=== PATIENT | female | born 1955 | race African-American/Black ===

== ENCOUNTER 2018-08-10 14:32 | Inpatient (IN) | payer OTHER, MEDICAID ==
[2018-08-10] VITALS: BP 102/52
[~2018-08-10] VITALS: Ht 170.2 cm; Wt 76.2 kg
[2018-08-10 15:45] LABS: BASOPHILS % 0.5 % (0.0-2.0); EOSINOPHILS % 0.7 % (0.0-5.0); HEMATOCRIT. 41.9 % (36.0-48.0); LYMPHOCYTES % 8.3 % (20.0-50.0); MEAN CORPUSCULAR HEMOGLOBIN 31.7 pg (28.0-32.0); MEAN CORPUSCULAR VOLUME 94.7 fL (81.0-99.0); MONOCYTES % 3.6 % (2.0-8.0); NEUTROPHILS % 86.9 % (40.0-76.0); PLATELET 260 x1000/uL (130-400); RED BLOOD CELL COUNT 4.42 mill/uL (4.2-5.4); RED CELL DISTRIBUTION WIDTH 13.4 % (11.6-14.6)
[2018-08-10 15:50] LABS: CHLORIDE 103 mEq/L (98-107)
[2018-08-10] MEDS ORDERED: CEFTRIAXONE 2 G PREMIX 50 ML IV ONE (16:00)
[2018-08-10] MEDS ORDERED: SODIUM CHLORIDE 0.9% 1000ML BAG (SEPSIS BOLUS) IV ONE (16:00)
[2018-08-10] MEDS ORDERED: LEVOFLOXACIN 750MG PREMIX 150 ML IV ONE (16:00)
[2018-08-10 17:12] LABS: CLARITY URINE CLEAR (CLEAR); COLOR URINE YELLOW (YELLOW); KETONES URINE NEGATIVE (NEGATIVE); LEUKOCYTE ESTERASE URINE NEGATIVE (NEGATIVE); NITRITE URINE NEGATIVE (NEGATIVE); OCCULT BLOOD URINE TRACE (NEGATIVE); PROTEIN URINE NEGATIVE (NEGATIVE); SPECIFIC GRAVITY URINE 1.011 (1.005-1.030)
[2018-08-10] MEDS ORDERED: ACETAMINOPHEN 325MG TABLET ONE (17:36)
[2018-08-10] MEDS ORDERED: ACETAMINOPHEN 325MG TABLET PO PRN ×2 (19:30→22:15)
[2018-08-10] MEDS ORDERED: HYDROCODONE/ACETAMINOPHEN 5/325MG TABLET PO NR (20:47)
[2018-08-10 21:20] VITALS: BP 128/75
[2018-08-10 21:30] VITALS: BP 128/75
[2018-08-10] MEDS ORDERED: LEVOFLOXACIN 500MG PREMIX 100 ML IV SCH (22:15)
[2018-08-10] MEDS ORDERED: CLONIDINE 0.1MG TABLET PO PRN (22:15)
[2018-08-10] MEDS ORDERED: HYDROCODONE/ACETAMINOPHEN 10/325MG TABLET PO PRN (22:15)
[2018-08-10] MEDS ORDERED: DIPHENHYDRAMINE 50MG/ML VIAL IV PRN (22:15)
[2018-08-10] MEDS ORDERED: MAGNESIUM/ALUMINUM HYDROXIDE/SIMETHICONE 30ML UDC PO PRN (22:15)
[2018-08-10] MEDS ORDERED: IPRATROPIUM/ALBUTEROL 0.5-3(2.5)MG/3ML NEB INH PRN (22:15)
[2018-08-10] MEDS ORDERED: ONDANSETRON HCL 4MG/2ML INJ IV PRN (22:15)
[2018-08-10] MEDS ORDERED: GUAIFENESIN 200MG/10ML SUGAR FREE UDC PO PRN (22:15)
[2018-08-10] MEDS ORDERED: POTASSIUM CHLORIDE 20MEQ TABLET SR PO NR (23:00)
[2018-08-10] MEDS ORDERED: HYDR-2510 PO (23:18)
[2018-08-10] MEDS ORDERED: AMLO5TAB4 PO (23:18)
[2018-08-11] MEDS ORDERED: HYDROCODONE/ACETAMINOPHEN 5/325MG TABLET PO PRN (01:00)
[2018-08-11] MEDS: SODIUM CHLORIDE 0.9% 1,000 ML IV SCH ×2 (02:30→11:48)
[2018-08-11] MEDS: IPRATROPIUM/ALBUTEROL 0.5-3(2.5)MG/3ML NEB HHN SCH ×4 (02:49→22:04)
[2018-08-11 04:00] VITALS: BP 115/55
[2018-08-11 08:00] VITALS: BP 121/73
[2018-08-11] MEDS: ENOXAPARIN 40MG/0.4ML SYR SUBCUT SCH (08:51)
[2018-08-11] MEDS: GUAIFENESIN 600MG ER TABLET PO SCH ×2 (08:51→20:01)
[2018-08-11] MEDS ORDERED: POTASSIUM CHLORIDE 20MEQ TABLET SR PO NR ×2 (10:15→19:15)
[2018-08-11 16:00] VITALS: BP 146/79
[2018-08-11] MEDS ORDERED: LEVOFLOXACIN 500MG PREMIX 100 ML IV SCH (16:00)
[2018-08-11] MEDS ORDERED: TEMAZEPAM 15MG CAPSULE PO PRN (19:15)
[2018-08-11 20:00] VITALS: BP 136/66
[2018-08-12] VITALS: BP 139/73
[2018-08-12] MEDS: SODIUM CHLORIDE 0.9% 1,000 ML IV SCH (00:07)
[2018-08-12] MEDS: IPRATROPIUM/ALBUTEROL 0.5-3(2.5)MG/3ML NEB HHN SCH ×2 (03:42→09:42)
[2018-08-12 04:00] VITALS: BP 138/72
[2018-08-12 07:02] LABS: BASOPHILS % 0.3 % (0.0-2.0); EOSINOPHILS % 0.9 % (0.0-5.0); HEMATOCRIT. 36.1 % (36.0-48.0); HEMOGLOBIN. 11.9 g/dL (12.0-16.0); LYMPHOCYTES % 14.5 % (20.0-50.0); MEAN CORPUSCULAR HEMOGLOBIN 31.2 pg (28.0-32.0); MEAN CORPUSCULAR VOLUME 94.6 fL (81.0-99.0); MEAN PLATELET VOLUME 8.8 fl (7.4-10.4); MONOCYTES % 3.3 % (2.0-8.0); PLATELET 243 x1000/uL (130-400); RED BLOOD CELL COUNT 3.81 mill/uL (4.2-5.4); RED CELL DISTRIBUTION WIDTH 13.4 % (11.6-14.6)
[2018-08-12 07:41] LABS: CHLORIDE 115 mEq/L (98-107)
[2018-08-12 08:00] VITALS: BP 156/83
[2018-08-12] MEDS: GUAIFENESIN 600MG ER TABLET PO SCH (08:59)
[2018-08-12] MEDS: ENOXAPARIN 40MG/0.4ML SYR SUBCUT SCH (08:59)
[2018-08-12 12:41] VITALS: BP 125/83
== END 2018-08-12 13:40 | disposition home or self-care (01) | DRG 720 ==
LOC: ER 15:42 → 5WST 16:28 → EDBEDREQTM 16:30 → EDBEDREQ 16:30 → ENRESERV 20:02
PROVIDERS: ADMIT Internal Medicine; ATTEND Internal Medicine
DX: A41.9 Sepsis, unspecified organism (principal); J18.9 Pneumonia, unspecified organism; E87.6 Hypokalemia; I10 Essential (primary) hypertension; E78.00 Pure hypercholesterolemia, unspecified; Z82.49 Family history of ischemic heart disease and other diseases of the circulatory system
CPT/HCPCS: 36415; 71045; 76700; 80048; 83605; 83735; 83880; 84484; 87070; 87077; 87804; 93005; 93970; 94640; 96365; 96368; 99291; J0696; J1650; J1956; J7030; J7620

== ENCOUNTER 2020-08-27 14:43 | Inpatient (IN) | payer BC, MEDICAID ==
[~2020-08-27] VITALS: Ht 167.6 cm; Wt 77.8 kg
[~2020-08-27 14:43] MED LIST: AMLO5TAB4 PO; HYDR50TA PO
[2020-08-27] MEDS ORDERED: ONDANSETRON HCL 4MG/2ML INJ IV STA (15:35)
[2020-08-27] MEDS ORDERED: MORPHINE SULFATE 4 MG/ML CPJ (NOT FOR IM USE) IV STA (15:35)
[2020-08-27] MEDS ORDERED: SODIUM CHLORIDE 0.9% 1,000 ML IV ONE ×2 (15:45→17:30)
[2020-08-27] MEDS ORDERED: HYDRALAZINE 20MG/ML VIAL IV ONE (17:30)
[2020-08-27 18:35] LABS: BASOPHILS % 0.3 % (0.0-2.0); EOSINOPHILS % 0.9 % (0.0-5.0); HEMATOCRIT. 42.9 % (36.0-48.0); HEMOGLOBIN. 14.7 g/dL (12.0-16.0); MEAN CORPUSCULAR VOLUME 93.1 fL (81.0-99.0); MEAN PLATELET VOLUME 8.7 fl (7.4-10.4); MONOCYTES % 3.4 % (2.0-8.0); NEUTROPHILS % 81.4 % (40.0-76.0); PLATELET 274 x1000/uL (130-400); RED BLOOD CELL COUNT 4.61 mill/uL (4.2-5.4); RED CELL DISTRIBUTION WIDTH 13.5 % (11.6-14.6)
[2020-08-27 18:41] LABS: CHLORIDE 108 mEq/L (98-107)
[2020-08-27 18:44] LABS: ETHANOL BLOOD < 10 mg/dL
[2020-08-27 19:45] LABS: PROTHROMBIN TIME 11.1 sec (9.6-11.0)
[2020-08-27] MEDS ORDERED: HYDROCHLOROTHIAZIDE 12.5MG CAPSULE PO ONE (20:15)
[2020-08-27] MEDS ORDERED: AMLODIPINE 5MG TABLET PO ONE (20:15)
[2020-08-27 22:00] VITALS: BP 146/92
[2020-08-27] MEDS ORDERED: ASPI-1497 MT (22:11)
[2020-08-27] MEDS ORDERED: HYDR12.54 MT (22:11)
[2020-08-27] MEDS ORDERED: AMLO5TAB4 MT (22:11)
[2020-08-27 22:15] VITALS: BP 145/74
[2020-08-27] MEDS ORDERED: ACETAMINOPHEN 325MG TABLET PO PRN (23:30)
[2020-08-27] MEDS ORDERED: ONDANSETRON HCL 4MG/2ML INJ IV PRN (23:30)
[2020-08-27] MEDS ORDERED: CLONIDINE 0.1MG TABLET PO PRN (23:30)
[2020-08-28] VITALS (11 sets, daily range): BP systolic 117–152; BP diastolic 57–93
[2020-08-28 05:49] LABS: BASOPHILS % 0.6 % (0.0-2.0); EOSINOPHILS % 1.1 % (0.0-5.0); HEMATOCRIT. 40.2 % (36.0-48.0); HEMOGLOBIN. 13.3 g/dL (12.0-16.0); MEAN CORPUSCULAR HEMOGLOBIN 31.3 pg (28.0-32.0); MEAN CORPUSCULAR VOLUME 94.2 fL (81.0-99.0); MEAN PLATELET VOLUME 8.5 fl (7.4-10.4); NEUTROPHILS % 68.3 % (40.0-76.0); PLATELET 239 x1000/uL (130-400); RED BLOOD CELL COUNT 4.27 mill/uL (4.2-5.4); RED CELL DISTRIBUTION WIDTH 13.9 % (11.6-14.6)
[2020-08-28 05:58] LABS: CHLORIDE 108 mEq/L (98-107)
[2020-08-28 06:13] LABS: CREATINE KINASE 101 IU/L (26-192); LDL CHOLESTEROL 129 mg/dL (5-100)
[2020-08-28 06:16] LABS: HDL CHOLESTEROL 45 mg/dL (40-59)
[2020-08-28 06:19] LABS: CREATINE KINASE MB FRACTION 1.8 ng/mL (0.5-3.6)
[2020-08-28] MEDS ORDERED: NIFEDIPINE XL 60MG TAB PO SCH (09:00)
[2020-08-28] MEDS ORDERED: POTASSIUM CHLORIDE 20MEQ TABLET SR PO NR (10:00)
[2020-08-28] MEDS ORDERED: ASPIRIN 81MG TABLET PO SCH (10:15)
[2020-08-28 12:25] LABS: CLARITY URINE CLEAR (CLEAR); COLOR URINE YELLOW (YELLOW); KETONES URINE NEGATIVE (NEGATIVE); LEUKOCYTE ESTERASE URINE TRACE (NEGATIVE); NITRITE URINE NEGATIVE (NEGATIVE); OCCULT BLOOD URINE NEGATIVE (NEGATIVE); PH URINE 5.5 (4.5-8.0); PROTEIN URINE NEGATIVE (NEGATIVE); SPECIFIC GRAVITY URINE 1.015 (1.005-1.030)
[2020-08-28 13:21] LABS: *AMPHETAMINES SCREEN URINE NEGATIVE (NEGATIVE); *BARBITURATES SCREEN URINE NEGATIVE (NEGATIVE); *BENZODIAZEPINES SCREEN URINE NEGATIVE (NEGATIVE); *COCAINE SCREEN URINE NEGATIVE (NEGATIVE); METHADONE URINE SCREEN NEGATIVE (NEGATIVE); OPIATES URINE SCREEN PRESUMTIVE POSITIVE (NEGATIVE)
[2020-08-28 13:22] LABS: CANNABINOID URINE SCREEN NEGATIVE (NEGATIVE); PHENCYCLIDINE URINE SCREEN NEGATIVE (NEGATIVE)
[2020-08-28] MEDS: ENOXAPARIN 40MG/0.4ML SYR SUBCUT SCH (15:12)
[2020-08-28 15:42] LABS: CREATINE KINASE MB FRACTION 1.6 ng/mL (0.5-3.6)
[2020-08-28] MEDS ORDERED: ATORVASTATIN CALCIUM 10MG TABLET PO SCH (21:00)
[2020-08-28] MEDS ORDERED: ATORVASTATIN CALCIUM 40MG TABLET PO SCH (21:00)
[2020-08-29] VITALS (13 sets, daily range): BP systolic 114–142; BP diastolic 61–83
[2020-08-29 07:15] LABS: EOSINOPHILS % 5.5 % (0.0-5.0); HEMATOCRIT. 40.2 % (36.0-48.0); HEMOGLOBIN. 13.8 g/dL (12.0-16.0); LYMPHOCYTES % 49.8 % (20.0-50.0); MEAN CORPUSCULAR HEMOGLOBIN 32.2 pg (28.0-32.0); MEAN PLATELET VOLUME 8.5 fl (7.4-10.4); NEUTROPHILS % 31.7 % (40.0-76.0); PLATELET 251 x1000/uL (130-400); RED BLOOD CELL COUNT 4.28 mill/uL (4.2-5.4)
[2020-08-29 07:35] LABS: CHLORIDE 109 mEq/L (98-107)
[2020-08-29] MEDS ORDERED: NITROGLYCERIN 50MCG/ML 10ML VIAL (CATH LAB) IV ONE (07:50)
[2020-08-29] MEDS ORDERED: NICARDIPINE 100MCG/ML 10ML VIAL (CATH LAB) IV ONE (07:50)
[2020-08-29] MEDS ORDERED: HEPARIN SODIUM 1,000 UNIT/1ML VIAL IV ONE (07:50)
[2020-08-29] MEDS ORDERED: VERAPAMIL HCL 2.5 MG/1 ML 2ML VIAL IV ONE (08:35)
[2020-08-29] MEDS ORDERED: LIDOCAINE HCL 1% 20ML VIAL (Pyxis) INJ ONE (08:35)
[2020-08-29] MEDS ORDERED: IODIXANOL 320MG/ML 100 ML BOTTLE IV ONE (08:36)
[2020-08-29] MEDS ORDERED: MIDAZOLAM HCL 2 MG/2 ML VIAL ONE (09:00)
[2020-08-29] MEDS ORDERED: FENTANYL CITRATE/PF 50MCG/ML 2ML VIAL ONE (09:00)
[2020-08-29] MEDS: ENOXAPARIN 40MG/0.4ML SYR SUBCUT SCH (09:00)
[2020-08-29] MEDS ORDERED: LIP40 PO (10:06)
[2020-08-29] MEDS ORDERED: AMLO5TAB4 PO ×2 (10:24)
[2020-08-29] MEDS ORDERED: HYDR12.54 MT (10:24)
[2020-08-29] MEDS ORDERED: ATROPINE SULFATE 1MG/10ML SYR IV PRN (10:30)
[2020-09-12] MEDS ORDERED: DILT120C46 PO (12:00)
[2020-09-12] MEDS ORDERED: AMLO10TA80 PO (12:00)
== END 2020-08-29 17:00 | disposition home or self-care (01) | DRG 281 ==
LOC: ER 14:43 → 3WST 18:25 → ENRESERV 19:50
PROVIDERS: ADMIT Internal Medicine; ATTEND Internal Medicine
PROC: 4A023N7 Measurement of Cardiac Sampling and Pressure, Left Heart, Percutaneous Approach (ICD-10-PCS; principal; 2020-08-29)
PROC: B211YZZ Fluoroscopy of Multiple Coronary Arteries using Other Contrast (ICD-10-PCS; 2020-08-29)
DX: I16.1 Hypertensive emergency (principal); I21.A1 Myocardial infarction type 2; I50.32 Chronic diastolic (congestive) heart failure; I11.0 Hypertensive heart disease with heart failure; E78.5 Hyperlipidemia, unspecified; I08.1 Rheumatic disorders of both mitral and tricuspid valves; I25.10 Atherosclerotic heart disease of native coronary artery without angina pectoris; Z20.822 Contact with and (suspected) exposure to COVID-19; E87.6 Hypokalemia; F17.200 Nicotine dependence, unspecified, uncomplicated; Z82.49 Family history of ischemic heart disease and other diseases of the circulatory system; Z79.899 Other long term (current) drug therapy; Z79.82 Long term (current) use of aspirin
CPT/HCPCS: 36415; 71045; 80048; 80053; 80061; 80305; 80320; 81003; 82140; 82550; 82553; 83036; 83605; 83880; 84443; 84484; 85025; 87426; 93005; 93306; 93458; 99285; C1769; C1887; C1893; J0360; J1644; J1650; J2250; J2270; J2405; J3010; J3490; J7030; Q9967; G0480

== ENCOUNTER → 2020-11-16 | Outpatient (CLI) | payer BC ==
[~2020-11-16] MED LIST changes: +AMLO10TA80 PO; -AMLO5TAB4 PO; +ASPI-1497 MT; +DILT120C46 PO; +HYDR12.54 MT; -HYDR50TA PO; +LIP40 PO
== END | disposition home or self-care (01) ==
LOC: MAMMO 08:33
PROVIDERS: ATTEND Internal Medicine Geriatric Medicine
DX: Z12.31 Encounter for screening mammogram for malignant neoplasm of breast (principal)
CPT/HCPCS: 77067

== ENCOUNTER 2020-11-25 07:37 | Emergency (ER) | payer BC ==
[~2020-11-25] VITALS: Ht 167.6 cm; Wt 77.0 kg
[2020-11-25] MEDS ORDERED: LOSARTAN POTASSIUM 50 MG TABLET PO ONE (08:30)
[2020-11-25] MEDS ORDERED: ACETAMINOPHEN 325MG TABLET PO ONE (08:30)
[2020-11-25 10:30] VITALS: BP 176/88
[2020-11-27] MEDS ORDERED: DILT120C46 PO (12:29)
== END 2020-11-25 11:11 | disposition home or self-care (01) ==
LOC: ER 07:50
DX: I10 Essential (primary) hypertension (principal); M79.18 Myalgia, other site; Z79.899 Other long term (current) drug therapy
CPT/HCPCS: 99283

== ENCOUNTER → 2020-12-04 | Outpatient (CLI) | payer BC ==
[~2020-12-04] MED LIST changes: -AMLO10TA80 PO; -HYDR12.54 MT
== END | disposition home or self-care (01) ==
LOC: RAD 09:41
PROVIDERS: ATTEND Internal Medicine Geriatric Medicine
DX: R92.8 Other abnormal and inconclusive findings on diagnostic imaging of breast (principal); N64.89 Other specified disorders of breast
CPT/HCPCS: 76641; 77065